=== PATIENT | female | born 1970 | race Two or more races ===

== ENCOUNTER 2021-01-19 17:30 | Observation (INO) | payer OTHER ==
[2021-01-19] MEDS ORDERED: FAMOTIDINE 10 MG TABLET PO ONE (18:37)
[2021-01-19] MEDS ORDERED: ACETAMINOPHEN 500 MG TABLET (FP) PO ONE (18:37)
[2021-01-19] MEDS ORDERED: MAG HYDROX/AL HYDROX/SIMETH 30 ML UNIT-DOSE CUP PO ONE (18:37)
[2021-01-19] MEDS ORDERED: ACETAMINOPHEN 325 MG TABLET (FP) ONE (19:02)
[2021-01-19] MEDS ORDERED: FAMOTIDINE 10 MG TABLET ONE (19:03)
[2021-01-19] MEDS ORDERED: MAG HYDROX/AL HYDROX/SIMETH 30 ML UNIT-DOSE CUP ONE (19:03)
[2021-01-19 19:15] LABS: BASO % 0.4 % (0-2.0); EOS % 0.8 % (0-4.5); HEMATOCRIT 41.6 % (32.4-45.2); HEMOGLOBIN 13.7 GM/dL (10.7-15.3); LYMPH % 23.1 % (8-40); MCH 29.8 pg (25.7-33.7); MCHC 33.1 g/dl (32.0-36.0); NEUT % 68.7 % (42.8-82.8); PLATELET COUNT 269 K/MM3 (134-434); RBC 4.62 M/mm3 (3.60-5.2); RDW 14.1 % (11.6-15.6)
[2021-01-19 19:24] LABS: INR 0.88 (0.83-1.09); PROTHROMBIN TIME (PATIENT) 10.9 SEC (9.7-13.0)
[2021-01-19 19:27] LABS: ACTIVATED PTT 28.4 SECONDS (25.2-36.5)
[2021-01-19 19:32] LABS: CHLORIDE 106 mmol/L (98-107); SODIUM 139 mmol/L (136-145)
[2021-01-19 19:33] LABS: ALBUMIN 4.5 g/dl (3.4-5.0); ANION GAP 6 MMOL/L (8-16); CALCIUM 10.5 mg/dL (8.5-10.1); CO2 28 mmol/L (21-32); LIPASE 179 U/L (73-393)
[2021-01-19 19:34] LABS: GLUCOSE,RANDOM 96 mg/dL (74-106)
[2021-01-19 19:37] LABS: CREATININE 0.8 mg/dL (0.55-1.3); SGOT/AST 14 U/L (15-37); SGPT/ALT 25 U/L (13-61)
[2021-01-19 19:39] LABS: ALK PHOS 84 U/L (45-117); BILIRUBIN,TOTAL 0.2 mg/dL (0.2-1); TOT PROT 7.8 g/dl (6.4-8.2)
[2021-01-19] MEDS ORDERED: LIDOCAINE VISCOUS 2% ORAL/TOP 20 ML UNIT-DOSE CUP MM ONE (19:41)
[2021-01-19] MEDS ORDERED: LIDOCAINE VISCOUS 2% ORAL/TOP 20 ML UNIT-DOSE CUP ONE (21:04)
[2021-01-19] MEDS ORDERED: ASPIRIN 81 MG CHEWABLE TABLETS PO ONE (21:42)
[2021-01-19] MEDS ORDERED: ASPIRIN 81 MG CHEWABLE TABLETS ONE (22:22)
[2021-01-20 01:20] LABS: EPI CELLS 8 /uL (0-25.1); HYALINE CASTS 1 /uL (0-3.1); URINE APPEARANCE CLEAR; URINE BACTERIA 1590 /uL (0-1359); URINE BILIRUBIN NEGATIVE (NEGATIVE); URINE COLOR YELLOW; URINE GLUCOSE (UA) NEGATIVE (NEGATIVE); URINE KETONE NEGATIVE (NEGATIVE); URINE LEUK ESTERASE NEGATIVE (NEGATIVE); URINE NITRITE NEGATIVE (NEGATIVE); URINE PROTEIN NEGATIVE (NEGATIVE); URINE RBC 12 /uL (0-23.9); URINE UROBILINOGEN 0.2 mg/dL (0.2-1.0); URINE WBC 12 /uL (0-25.8)
[2021-01-20] MEDS ORDERED: ACETAMINOPHEN 325 MG TABLET (FP) PO PRN (06:33)
[2021-01-20] MEDS ORDERED: ACETAMINOPHEN 325 MG TABLET (FP) ONE (06:48)
[2021-01-20] MEDS ORDERED: DOCUSATE SODIUM 100 MG CAPSULE (FP) PO ONE (11:32)
[2021-01-20] MEDS ORDERED: PANTOPRAZOLE 40 MG TABLET ONE (11:32)
[2021-01-20] MEDS ORDERED: LIDOCAINE 5% TOPICAL PATCH ONE (11:33)
[2021-01-20] MEDS: DOCUSATE SODIUM 100 MG CAPSULE (FP) PO SCH ×2 (11:42→22:32)
[2021-01-20] MEDS: HYDROCHLOROTHIAZIDE 12.5 MG CAPSULE (FP) PO SCH (11:42)
[2021-01-20] MEDS: ENOXAPARIN NA (PORCINE) 40 MG/0.4 ML DISP.SYRIN SQ SCH (11:43)
[2021-01-20] MEDS: LIDOCAINE 5% TOPICAL PATCH TP SCH (11:43)
[2021-01-20] MEDS: PANTOPRAZOLE 40 MG TABLET PO SCH (11:43)
[2021-01-20 11:55] LABS: BASO % 0.6 % (0-2.0); HEMATOCRIT 39.2 % (32.4-45.2); HEMOGLOBIN 13.3 GM/dL (10.7-15.3); LYMPH % 20.4 % (8-40); MCH 30.3 pg (25.7-33.7); MCHC 33.8 g/dl (32.0-36.0); MEAN CELL VOLUME 89.5 fl (80-96); MEAN PLT VOLUME 8.5 fl (7.5-11.1); MONO % 8.4 % (3.8-10.2); NEUT % 69.6 % (42.8-82.8); PLATELET COUNT 258 K/MM3 (134-434); RBC 4.37 M/mm3 (3.60-5.2); WHITE BLOOD COUNT 8.9 K/mm3 (4.0-10.0)
[2021-01-20 12:16] LABS: CHLORIDE 104 mmol/L (98-107); SODIUM 141 mmol/L (136-145)
[2021-01-20 12:19] LABS: CALCIUM 9.7 mg/dL (8.5-10.1)
[2021-01-20 12:20] LABS: ANION GAP 7 MMOL/L (8-16); BLOOD UREA NITROGEN 13.9 mg/dL (7-18); CO2 30 mmol/L (21-32); GLUCOSE,RANDOM 83 mg/dL (74-106); MAGNESIUM 2.7 mg/dL (1.8-2.4)
[2021-01-20 12:23] LABS: BILIRUBIN,TOTAL 0.3 mg/dL (0.2-1); CREATININE 0.7 mg/dL (0.55-1.3); PHOSPHOROUS 3.8 mg/dL (2.5-4.9); SGOT/AST 12 U/L (15-37); SGPT/ALT 24 U/L (13-61); TOT PROT 7.3 g/dl (6.4-8.2)
[2021-01-20 12:24] LABS: CHOLESTEROL 229 mg/dL (50-200); TRIGLYCERIDES 190 mg/dL (0-150)
[2021-01-20 12:25] LABS: ALK PHOS 80 U/L (45-117); LDL CHOLESTEROL (ONLY SJRH) 128 mg/dL (5-100)
[2021-01-20 12:28] LABS: HDL CHOLESTEROL 58 mg/dL (40-60)
[2021-01-20] MEDS ORDERED: MAG HYDROX/AL HYDROX/SIMETH 30 ML UNIT-DOSE CUP PO PRN (14:14)
[2021-01-20 21:15] VITALS: BMI 30.8
[2021-01-20] MEDS ORDERED: LISINOPRIL 10 MG TABLET PO SCH (22:00)
[2021-01-20] MEDS ORDERED: LIDOCAINE PATCH REMOVAL MC SCH (22:00)
[2021-01-20] MEDS: POLYETHYLENE GLYCOL 3350 119 GM BTL PO SCH (22:35)
[2021-01-21] MEDS: HYDROCHLOROTHIAZIDE 12.5 MG CAPSULE (FP) PO SCH (09:01)
[2021-01-21] MEDS: DOCUSATE SODIUM 100 MG CAPSULE (FP) PO SCH (09:01)
[2021-01-21] MEDS: POLYETHYLENE GLYCOL 3350 119 GM BTL PO SCH (09:01)
[2021-01-21] MEDS: PANTOPRAZOLE 40 MG TABLET PO SCH (09:01)
[2021-01-21] MEDS: ENOXAPARIN NA (PORCINE) 40 MG/0.4 ML DISP.SYRIN SQ SCH (09:02)
[2021-01-21] MEDS: LIDOCAINE 5% TOPICAL PATCH TP SCH (09:02)
[2021-01-21] MEDS ORDERED: amLODIPine BESYLATE 2.5 MG TABLET (FP) PO SCH (11:00)
[2021-01-21 14:16] VITALS: BP 139/79; PULSE 86; TEMP 98.1
== END 2021-01-21 14:46 | disposition home or self-care (01) ==
LOC: JER 17:30 → JERBED 23:02 → INTOOBSV 23:02 → UNDOADMOB 23:02 → OBSVTOIN 23:02 → J4W 01-20 20:21 → JERBED 01-20 20:21 → J4W 01-21 09:28
PROVIDERS: ADMIT Family Medicine; ATTEND Family Medicine
PROC: 3E023GC Introduction of Other Therapeutic Substance into Muscle, Percutaneous Approach (ICD-10-PCS; principal; 2021-01-21)
DX: K20.90 Esophagitis, unspecified without bleeding (principal); I10 Essential (primary) hypertension; K92.9 Disease of digestive system, unspecified; Z90.49 Acquired absence of other specified parts of digestive tract; Z29.9 Encounter for prophylactic measures, unspecified; R10.13 Epigastric pain; K21.9 Gastro-esophageal reflux disease without esophagitis; M54.5 Low back pain; R07.89 Other chest pain
CPT/HCPCS: 36415; 71046-TC-FY; 71275-TC; 72131-TC; 74174-TC; 80053; 80061; 81003; 82550; 83036; 83690; 83721; 83735; 84100; 84436; 84443; 84484; 84703; 85025; 85610; 85730; 93005; 93010; 93306-TC; 96372; 97116-GP; 99285-25; C9803; G0378; Q9967; U0003; U0005